=== PATIENT | female | born 1990 | race Caucasian/White ===

== ENCOUNTER 2021-06-28 15:11 | Inpatient (IN) | payer OTHER ==
[~2021-06-28] VITALS: Ht 154.9 cm; Wt 45.4 kg
[~2021-06-28 15:11] MED LIST: AMBIEN; ATIVAN; ATIVAN1 MG PO; BACTRIM DS TAB1 EACH PO; IBUPROFEN 600600 M1 PO; IBUPROFEN 800800 M1 PO; KEFLEX500 MG PO; LEVOCETIRIZINE D5 MG PO; MICROGESTIN 241 EACH PO; MUPIROCIN22 GM TOP; NORCO 5-325 TA1 EACH PO; ONDANSETRON HCL4 M2; PROZAC10 MG PO; ZOFRAN ODT4 MG PO
[2021-06-28 15:26] VITALS: BP 135/89
[2021-06-28 15:53] LABS: INFLUENZA A ANTIGEN Negative (Negative); INFLUENZA B ANTIGEN Negative (Negative)
[2021-06-28 17:00] LABS: ABSOLUTE EOSINOPHILS 0.4 thou/uL (0.0-0.7); ABSOLUTE LYMPHOCYTES 1.1 thou/uL (0.8-5.3); ABSOLUTE MONOCYTES 0.7 thou/uL (0.0-1.2); ABSOLUTE NEUTROPHILS 8.2 thou/uL (1.6-8.1); BASOPHILS 0.1 %; HEMATOCRIT 40.7 % (37.0-47.0); HEMOGLOBIN 13.5 gm/dL (12.0-15.0); LYMPHOCYTES 10.2 %; MCHC 33.2 g/dL (28.0-37.0); MCV 93.6 fL (80.0-100.0); MONOCYTES 6.8 %; MPV 8.6 fl. (7.2-11.1); NUCLEATED RBCS 0 /100WBC; PLATELET COUNT* 215 thou/uL (150-400); POLYS 78.9 %; RBC 4.35 mil/uL (4.20-5.00); WBC 10.3 thou/uL (4.0-11.0)
[2021-06-28 17:07] LABS: CALCIUM 8.8 mg/dL (8.5-10.1); CREATININE 0.6 mg/dL (0.6-1.3); POTASSIUM 4.2 mmol/L (3.5-5.1)
[2021-06-28 17:12] LABS: ALBUMIN 4.2 g/dL (3.4-5.0); TOTAL BILIRUBIN 0.3 mg/dL (<0.1-1.0); TOTAL PROTEIN 8.1 g/dL (6.4-8.2)
[2021-06-28 21:45] VITALS: BP 122/55
[2021-06-28 23:19] VITALS: BP 120/54
[2021-06-29 04:44] VITALS: BP 127/76
--- NOTE | 2021-06-29 04:57 | NUR ---
ADMISSION AT 0000. SHE IS PENDING FOR COVID. [employer] CART IS OUTSIDE THE ROOM. SHE HE WAS ORIENTED TO THE ROOM,CALL LIGHT EXPLAINED. SHE'S ON 2L O2. NO DISCOMFORTER. SHE HAS SLEPT INTERMITTENLY.
[2021-06-29 08:00] VITALS: BP 120/72
[2021-06-29] MEDS ORDERED: AZITHROMYCIN500 MG PO (10:12)
[2021-06-29] MEDS ORDERED: PROAIR HFA8.5 GM INH (10:12)
[2021-06-29] MEDS ORDERED: ADVAIR 250-501 EACH INH (10:12)
[2021-06-29] MEDS ORDERED: PREDNISONE 10 M10 MG PO (10:12)
--- NOTE | 2021-06-29 10:19 | EKG ---
[place] [address] ELECTROCARDIOGRAM REPORT Name: GISSELLE MAGUIRE Room: [address] ADM IN M.R.#: [id number] Admission: 06/28/21 Attend Phys: Elizabeth Tijerina Discharge: Date of : 89 Date of Service: 06/28/21 1658 Report #: [id number] THIS REPORT FOR: //name// [facility] ED Test Date: 2021-06-28 Test Time: 16:58:21 Pat Name: GISSELLE MAGUIRE Department: Room: [facility] Gender: F Manager Critical Care Unit: JANNET : 1990 Requested By: Shiva Stanton Order Number: [id number] MD: Aldo Mathis Measurements Intervals [place] Rate: 133 P: 79 VT: 102 QRS: 72 QRSD: 67 T: -53 QT: 331 QTc: 493 Interpretive Statements Sinus tachycardia Probable left atrial enlargement RSR' in V1 or V2, probably normal variant Borderline repolarization abnormality Prolonged QT interval No previous ECG available for comparison Electronically Signed On 06-29-2021 10:18:56 LAYOUT DESIGNER by Aldo Mathis [email or web address] <ELECTRONICALLY SIGNED> By: Aldo Mathis MD, [facility] 06/29/21 1018 57 Aldo Mathis MD, [facility] /EPI
[2021-06-29 10:57] VITALS: BP 127/76
== END 2021-06-29 11:30 | disposition home or self-care (01) | DRG 189 ==
LOC: M.ERS 15:11 → M.TBA-ER 17:31 → M.ORTHSURG 23:14
PROVIDERS: Physician Assistant; ADMIT Internal Medicine; ATTEND Internal Medicine
DX: J96.01 Acute respiratory failure with hypoxia (principal); J45.901 Unspecified asthma with (acute) exacerbation; F41.9 Anxiety disorder, unspecified; F32.9 Major depressive disorder, single episode, unspecified; Z20.822 Contact with and (suspected) exposure to COVID-19

== ENCOUNTER 2021-08-03 14:17 | Emergency (ER) | payer OTHER ==
[~2021-08-03] VITALS: Ht 154.9 cm; Wt 43.1 kg
[~2021-08-03 14:17] MED LIST changes: +ADVAIR 250-501 EACH INH; +AZITHROMYCIN500 MG PO; +PREDNISONE 10 M10 MG PO; +PROAIR HFA8.5 GM INH
[2021-08-03 16:14] VITALS: BP 143/104
== END 2021-08-03 16:15 | disposition left against medical advice (07) ==
LOC: M.ERS 14:17
DX: J02.9 Acute pharyngitis, unspecified (principal); R06.02 Shortness of breath; R51.9 Headache, unspecified; R43.8 Other disturbances of smell and taste; R05.9 Cough, unspecified; Z53.21 Procedure and treatment not carried out due to patient leaving prior to being seen by health care provider

== ENCOUNTER 2021-08-19 08:42 | Emergency (ER) | payer OTHER ==
[~2021-08-19] VITALS: Ht 154.9 cm; Wt 43.1 kg
[2021-08-19] MEDS ORDERED: HYDROCODON-ACE1 EAC7 PO (10:00)
[2021-08-19 10:44] VITALS: BP 144/94
== END 2021-08-19 10:45 | disposition home or self-care (01) ==
LOC: M.ERS 08:42
DX: S60.212A Contusion of left wrist, initial encounter (principal); F32.9 Major depressive disorder, single episode, unspecified; R51.9 Headache, unspecified; J45.909 Unspecified asthma, uncomplicated; W01.0XXA Fall on same level from slipping, tripping and stumbling without subsequent striking against object, initial encounter; Y93.89 Activity, other specified; Y92.89 Other specified places as the place of occurrence of the external cause; Y99.8 Other external cause status